=== PATIENT | male | born 1950 | race Caucasian/White ===

== ENCOUNTER 2017-01-02 07:16 | Emergency (ER) | payer BC ==
[2017-01-02 07:27] VITALS: BP 119/84
--- NOTE | 2017-01-02 07:40 | UC ---
Skin Complaint HPI - HPI Summary HPI Summary: 66 YEAR OLD MALE PRESENTS WITH COMPLAINS OF RASH ON LEFT ARM. - History of Current Complaint Chief Complaint: UCSkin Time Seen by Provider: 01/02/17 07:39 Stated Complaint: TICK BITE - Allergy/Home Medications Allergies/Adverse Reactions: Allergies Allergy/AdvReac Type Severity Reaction Status Date / Time No Known Allergies Allergy Verified 03/31/16 07:00 Review of Systems Constitutional: Negative Skin: Negative - LEFT ARM, Rash Eyes: Negative ENT: Negative Respiratory: Negative Cardiovascular: Negative Gastrointestinal: Negative Genitourinary: Negative Motor: Negative Neurovascular: Negative Musculoskeletal: Negative Neurological: Negative Psychological: Negative All Other Systems Reviewed And Are Negative: Yes PMH/Surg Hx/FS Hx/Imm Hx - Surgical History Surgical History: Yes Surgery Procedure, Year, and Place: HERNIA REPAIR AMBER - Social History Alcohol Use: Occasionally Substance Use Type: None Smoking Status (MU): Former Smoker Type: Cigarettes Length of Time of Smoking/Using Tobacco: 30 YRS Have You Smoked in the Last Year: No When Did the Patient Quit Smoking/Using Tobacco: 15 YRS Physical Exam Triage Information Reviewed: Yes Vital Signs: Initial Vital Signs Temp 36.5 C 01/02/17 07:24 Pulse 93 01/02/17 07:24 Resp 20 01/02/17 07:24 BP 119/84 01/02/17 07:24 Pulse Ox 99 01/02/17 07:24 Eye Exam: Normal ENT Exam: Normal Dental Exam: Normal Neck exam: Normal Neck: Positive: 1 Respiratory Exam: Normal Cardiovascular Exam: Normal Abdominal Exam: Normal Musculoskeletal Exam: Normal Neurological Exam: Normal Psychological Exam: Normal Skin: Positive: rashes - BULLS EYE RASH LEFT ARM Course/Dx - Diagnoses Provider Diagnoses: TICK BITE. BULLSEYE RASH Discharge - Discharge Plan Condition: Stable Disposition: HOME Prescriptions: DOXYcycline CAP(*) [DOXYcycline 100MG CAP(*)] 100 mg PO BID #56 cap Patient Education Materials: Lyme Disease (ED), Insect Bite or Sting (ED), Tick Bite (ED) Referrals: Efrain He MD [Primary Care Provider] - If Needed
== END 2017-01-02 07:52 | disposition home or self-care (01) ==
LOC: UCEAST 07:16
DX: S40.862A Insect bite (nonvenomous) of left upper arm, initial encounter (principal); W57.XXXA Bitten or stung by nonvenomous insect and other nonvenomous arthropods, initial encounter; Z87.891 Personal history of nicotine dependence
CPT/HCPCS: 86618; 99212; G0463

== ENCOUNTER 2017-02-24 05:00 | Emergency (ER) | payer BC ==
[2017-02-24] MEDS ORDERED: NS 0.9% 1000 ML* 1,000 ML IV ONE (05:44)
[2017-02-24 06:43] LABS: Hematocrit 43 % (42-52); Hemoglobin 14.5 g/dl (14.0-18.0); Mean Corpuscular HGB Conc 34 g/dl (31-36); Mean Corpuscular Hemoglobin 33 pg (27-31); Mean Corpuscular Volume 96 fL (80-94); Mean Platelet Volume 9 um3 (7.4-10.4); Red Blood Count 4.44 10^6/ul (4.0-5.4); Red Cell Distribution Width 13 % (10.5-15); White Blood Count 13.2 10^3/ul (3.5-10.8)
[2017-02-24 06:46] LABS: Add Diff/Slide Review? Slide Review Added; Comments Flag Yes
[2017-02-24 06:50] LABS: BUN/Creatinine Ratio 17.5 (8-20); Calcium 9.6 mg/dL (8.6-10.3); EGFR African American 82.2 (>60); EGFR Non-African American 63.9 (>60); Globulin 2.1 g/dL (2-4); Potassium 4.1 mmol/L (3.5-5.0); Total Bilirubin 0.8 mg/dL (0.2-1.0); Total Protein 7.1 g/dL (6.4-8.9)
[2017-02-24 06:58] LABS: Urine Bacteria Absent (Absent); Urine Bilirubin Negative (Negative); Urine Glucose Negative (Negative); Urine Nitrite Negative (Negative)
--- NOTE | 2017-02-24 08:27 | RAD ---
HISTORY: Pain, chest pain with cough COMPARISONS: April 20, 2016 VIEWS: 1: frontal portable view of the chest at 6:02 AM FINDINGS: LINES AND TUBES: None. CARDIOMEDIASTINAL SILHOUETTE: The cardiomediastinal silhouette is normal for portable technique. PLEURA: The costophrenic angles are sharp. No pleural abnormalities are noted. LUNG PARENCHYMA: The lungs are clear. ABDOMEN: The upper abdomen is clear. There is no subphrenic gas. BONES AND SOFT TISSUES: No bone or soft tissue abnormalities are noted. IMPRESSION: NO ACTIVE CARDIOPULMONARY DISEASE.
[2017-02-24] MEDS ORDERED: Dexamethasone IV* 4 MG/ML 1 ML (4 MG) IV SLOW PU ONE (09:10)
[2017-02-24] MEDS ORDERED: Dexamethasone IV* 4 MG/ML 1 ML (4 MG) ONE (09:12)
[2017-02-24 09:25] VITALS: BP 149/76
--- NOTE | 2017-02-24 16:32 | PN ---
Poornima Rosas SooYoung, scribed for Rajan Rangel MD on 02/24/17 at 0901 . Progress Note - Progress Note Date of Service: 02/24/17 Note: SO from Dr. Grissom at shift change to Dr. Morris pending reeval and dispo. 0900: ED physician at bedside A 66 y/o M presents to ED with c/o ongoing, productive cough for three days. Associated sx: sore throat, mild wheezing, hoarseness, R ear pain. Denies dysphagia. Non-smoker. Brief PE shows effusion in R ear and cerumen; L ear is nml. Pharyngeal erythema. Uvula appears swollen. No exudates. No sinus tenderness. DX: Pharyngitis. Asthmatic bronchitis. Dispo: Stable, will D/C home with prednisone, albuterol inhaler and Zpack. The documentation as recorded by the Poornima sky SooYoung accurately reflects the service I personally performed and the decisions made by me, Rajan Rangel MD.
--- NOTE | 2017-03-02 16:45 | ED ---
Quintin Rosas Benjamin, scribed for Carli Grissom MD on 02/24/17 at 0545 . Respiratory - HPI Summary HPI Summary: 66yo male c/o sore throat. Painful coughs, fatigue, and chills since Tuesday night. Pt denies fever. Pt reports baseline BP in 120/80 and HR of 88. Pt was a concerned about a possible bronchitis. - History of Current Complaint Chief Complaint: EDGeneral Stated Complaint: GENERAL ILLNESS Time Seen by Provider: 02/24/17 05:15 Hx Obtained From: Patient Onset/Duration: Sudden Onset, Lasting Days Timing: Constant Initial Severity: Moderate Current Severity: Moderate Pain Intensity: 6 Character: Cough (Productive) Sputum Color: Green Aggravating Factor(s): Nothing Alleviating Factor(s): Nothing Associated Signs and Symptoms: Chills - Allergy/Home Medications Allergies/Adverse Reactions: Allergies Allergy/AdvReac Type Severity Reaction Status Date / Time No Known Allergies Allergy Verified 03/31/16 07:00 PMH/Surg Hx/FS Hx/Imm Hx Sensory History: Reports: Hx Cataracts - LEFT NOVEMBER 2014, Hx Contacts or Glasses - RIGHT EYE CONTACT Denies: Hx Hearing Aid Opthamlomology History: Reports: Hx Cataracts - LEFT NOVEMBER 2014, Hx Contacts or Glasses - RIGHT EYE CONTACT - Surgical History Surgery Procedure, Year, and Place: HERNIA REPAIR AMBER Hx Anesthesia Reactions: No - Immunization History Date of Influenza Vaccine: 02/21/2017 Infectious Disease History: No Infectious Disease History: Denies: Hx Clostridium Difficile, Hx Hepatitis, Hx Human Immunodeficiency Virus (HIV), Hx of Known/Suspected MRSA, Hx Shingles, Hx Tuberculosis, Hx Known/ Suspected VRE, Hx Known/Suspected VRSA, History Other Infectious Disease, Traveled Outside the [place] in Last 30 Days - Family History Known Family History: Negative: Respiratory Disease - Social History Occupation: Employed Part-time Lives: Alone Alcohol Use: Occasionally Substance Use Type: Reports: None Smoking Status (MU): Former Smoker Type: Cigarettes Length of Time of Smoking/Using Tobacco: 30 YRS Have You Smoked in the Last Year: No Review of Systems Positive: Chills. Negative: Fever Eyes: Negative Positive: Sore Throat Cardiovascular: Negative Positive: Cough Gastrointestinal: Negative Genitourinary: Negative Musculoskeletal: Negative Skin: Negative Neurological: Negative Psychological: Normal All Other Systems Reviewed And Are Negative: Yes Physical Exam Triage Information Reviewed: Yes Vital Signs On Initial Exam: Initial Vitals BP 128/60 02/24/17 05:09 Vital Signs Reviewed: Yes Appearance: Positive: Well-Appearing, No Pain Distress, Well-Nourished Skin: Positive: Warm, Skin Color Reflects Adequate Perfusion, Dry Head/Face: Positive: Normal Head/Face Inspection Eyes: Positive: EOMI, JOSEFINA, Conjunctiva Clear ENT: Positive: Normal ENT inspection, Hearing grossly normal, Other - unable to see tonsils. Negative: Tonsillar swelling, Tonsillar exudate Neck: Positive: Supple, Nontender Respiratory/Lung Sounds: Positive: Clear to Auscultation Cardiovascular: Positive: RRR, Pulses are Symmetrical in both Upper and Lower Extremities Abdomen Description: Positive: Nontender, Soft Bowel Sounds: Positive: Present Musculoskeletal: Positive: Strength/ROM Intact Neurological: Positive: Sensory/Motor Intact, Alert, Oriented to Person Place, Time Psychiatric: Positive: Affect/Mood Appropriate - [place] Coma Scale Coma Scale Total: 15 Diagnostics - Vital Signs Vital Signs Temp Pulse Resp BP Pulse Ox 02/24/17 05:12 112 96 02/24/17 05:10 98.8 F 110 18 128/60 96 02/24/17 05:09 128/60 - Laboratory Lab Results: Lab Results 02/24/17 02/24/17 02/24/17 Range/Units 06:10 06:10 06:10 WBC 13.2 H (3.5-10.8) 10^3/ul RBC 4.44 (4.0-5.4) 10^6/ul Hgb 14.5 (14.0-18.0) g/dl Hct 43 (42-52) % MCV 96 H (80-94) fL MCH 33 H (27-31) pg MCHC 34 (31-36) g/dl RDW 13 (10.5-15) % Plt Count 247 (150-450) 10^3/ul MPV 9 (7.4-10.4) um3 Neut % (Auto) 81.1 (38-83) % Lymph % (Auto) 5.5 L (25-47) % Coke % (Auto) 12.5 H (1-9) % Eos % (Auto) 0.6 (0-6) % Baso % (Auto) 0.3 (0-2) % Absolute Neuts (auto) 10.7 H (1.5-7.7) 10^3/ul Absolute Lymphs (auto) 0.7 L (1.0-4.8) 10^3/ul Absolute Monos (auto) 1.7 H (0-0.8) 10^3/ul Absolute Eos (auto) 0.1 (0-0.6) 10^3/ul Absolute Basos (auto) 0 (0-0.2) 10^3/ul Absolute Nucleated RBC 0 10^3/ul Nucleated RBC % 0 Sodium 136 (133-145) mmol/L Potassium 4.1 (3.5-5.0) mmol/L Chloride 103 (101-111) mmol/L Carbon Dioxide 29 (22-32) mmol/L Anion Gap 4 (2-11) mmol/L BUN 20 (6-24) mg/dL Creatinine 1.14 (0.67-1.17) mg/dL Est GFR ( Amer) 82.2 (>60) Est GFR (Non-Af Amer) 63.9 (>60) BUN/Creatinine Ratio 17.5 (8-20) Glucose 175 H (70-100) mg/dL Lactic Acid 1.1 (0.5-2.0) mmol/L Calcium 9.6 (8.6-10.3) mg/dL Total Bilirubin 0.80 (0.2-1.0) mg/dL AST 20 (13-39) U/L ALT 21 (7-52) U/L Alkaline Phosphatase 44 (34-104) U/L Troponin I 0.00 (<0.04) ng/mL Total Protein 7.1 (6.4-8.9) g/dL Albumin 5.0 (3.2-5.2) g/dL Globulin 2.1 (2-4) g/dL Albumin/Globulin Ratio 2.4 (1-3) Urine Color Urine Appearance Urine pH (5-9) Ur Specific [place] (1.010-1.030) Urine Protein (Negative) Urine Ketones (Negative) Urine Blood (Negative) Urine Nitrate (Negative) Urine Bilirubin (Negative) Urine Urobilinogen (Negative) Ur Leukocyte Esterase (Negative) Urine WBC (Auto) (Absent) Urine RBC (Auto) (Absent) Ur Squamous Epith Cells (Absent) Urine Bacteria (Absent) Hyaline Casts (Absent) Urine Glucose (Negative) Group A Strep Rapid (Negative) 02/24/17 02/24/17 Range/Units 06:38 06:40 WBC (3.5-10.8) 10^3/ul RBC (4.0-5.4) 10^6/ul Hgb (14.0-18.0) g/dl Hct (42-52) % MCV (80-94) fL MCH (27-31) pg MCHC (31-36) g/dl RDW (10.5-15) % Plt Count (150-450) 10^3/ul MPV (7.4-10.4) um3 Neut % (Auto) (38-83) % Lymph % (Auto) (25-47) % Coke % (Auto) (1-9) % Eos % (Auto) (0-6) % Baso % (Auto) (0-2) % Absolute Neuts (auto) (1.5-7.7) 10^3/ul Absolute Lymphs (auto) (1.0-4.8) 10^3/ul Absolute Monos (auto) (0-0.8) 10^3/ul Absolute Eos (auto) (0-0.6) 10^3/ul Absolute Basos (auto) (0-0.2) 10^3/ul Absolute Nucleated RBC 10^3/ul Nucleated RBC % Sodium (133-145) mmol/L Potassium (3.5-5.0) mmol/L Chloride (101-111) mmol/L Carbon Dioxide (22-32) mmol/L Anion Gap (2-11) mmol/L BUN (6-24) mg/dL Creatinine (0.67-1.17) mg/dL Est GFR ( Amer) (>60) Est GFR (Non-Af Amer) (>60) BUN/Creatinine Ratio (8-20) Glucose (70-100) mg/dL Lactic Acid (0.5-2.0) mmol/L Calcium (8.6-10.3) mg/dL Total Bilirubin (0.2-1.0) mg/dL AST (13-39) U/L ALT (7-52) U/L Alkaline Phosphatase (34-104) U/L Troponin I (<0.04) ng/mL Total Protein (6.4-8.9) g/dL Albumin (3.2-5.2) g/dL Globulin (2-4) g/dL Albumin/Globulin Ratio (1-3) Urine Color Melany Urine Appearance Clear Urine pH 5.0 (5-9) Ur Specific [place] 1.025 (1.010-1.030) Urine Protein 1+(30 mg/dl) H (Negative) Urine Ketones Trace H (Negative) Urine Blood Negative (Negative) Urine Nitrate Negative (Negative) Urine Bilirubin Negative (Negative) Urine Urobilinogen Negative (Negative) Ur Leukocyte Esterase Trace H (Negative) Urine WBC (Auto) Trace(0-5/hpf) (Absent) Urine RBC (Auto) Trace(0-2/hpf) (Absent) Ur Squamous Epith Cells Present H (Absent) Urine Bacteria Absent (Absent) Hyaline Casts Present H (Absent) Urine Glucose Negative (Negative) Group A Strep Rapid Negative (Negative) Result Diagrams: 02/24/17 06:10 02/24/17 06:10 Lab Statement: Any lab studies that have been ordered have been reviewed, and results considered in the medical decision making process. - Radiology CXR Xray Interpretation: No Acute Changes Radiology Interpretation Completed By: ED Physician Disposition - Course Course Of Treatment: Reviewed pts medication and allergy lists. Blood pressure noted. pt awaiting labs and cxr and will be signed out to Dr. Rangel - Diagnoses Provider Diagnoses: URI (upper respiratory infection) Discharge - Discharge Plan Condition: Stable Disposition: HOME Prescriptions: Albuterol HFA INHALER* [Ventolin HFA Inhaler*] 2 puff INH Q6H PRN #1 mdi PRN Reason: Wheezing Azithromycin TAB* [Zithromax TAB (Z-ELISE) 250 mg #6 tabs] 2 tab PO .TODAY, THEN 1 DAILY #1 elise predniSONE TAB* [Deltasone TAB*] 60 mg PO DAILY 15 Days predniSONE TAB* [Deltasone TAB*] 60 mg PO DAILY #15 tab Patient Education Materials: Albuterol (By breathing), Prednisone (By mouth), Azithromycin (By mouth), Pharyngitis (ED), Bronchospasm (ED) Forms: *Work Release Referrals: Alvin Pena MD [Medical Doctor] - Efrain He MD [Primary Care Provider] - Cierra Kelsey MD [Medical Doctor] - Additional Instructions: Follow up with your primary care provider in 3 days. Please return to ED if you experience new or worsening symptoms. The documentation as recorded by the Quintin sky Benjamin accurately reflects the service I personally performed and the decisions made by me, Carli Grissom MD.
== END 2017-02-24 09:27 | disposition home or self-care (01) ==
LOC: ED 05:00
DX: R05 Cough (principal); R53.83 Other fatigue; Z87.891 Personal history of nicotine dependence; J06.9 Acute upper respiratory infection, unspecified
CPT/HCPCS: 36415; 71010; 80053; 81003; 81015; 83605; 84484; 85025; 87040; 87086; 87651; 96374; 99283; J1100

== ENCOUNTER 2019-02-07 12:42 | Inpatient (IN) | payer MEDICARE ==
[2019-02-07] MEDS ORDERED: Levofloxacin 750 MG IVPREMIX(* 750 MG/150 ML BAG IVPB ONE (13:24)
[2019-02-07] MEDS ORDERED: NS 0.9% 1000 ML** 1,000 ML IV ONE (13:24)
[2019-02-07] MEDS ORDERED: metroNIDAZOLE IV 500 MG/100ML* 500 MG/100 ML BAG IVPB ONE (13:24)
[2019-02-07 14:07] LABS: Hematocrit 42 % (42-52); Hemoglobin 14.2 g/dL (14.0-18.0); Mean Corpuscular HGB Conc 34 g/dL (31-36); Mean Corpuscular Hemoglobin 32 pg (27-31); Mean Corpuscular Volume 95 fL (80-94); Mean Platelet Volume 8.6 fL (7.4-10.4); Platelet Count 262 10^3/uL (150-450); Red Cell Distribution Width 14 % (10-15); White Blood Count 11.9 10^3/uL (3.5-10.8)
[2019-02-07 14:12] LABS: ABS Basophils 0.1 10^3/ul (0-0.2); ABS Eosinophils 0.1 10^3/ul (0-0.6); ABS Lymphocytes 0.9 10^3/ul (1.0-4.8); ABS Monocytes 1.8 10^3/ul (0-0.8); ABS Neutrophils 9.1 10^3/ul (1.5-7.7); Eosinophil % 0.5 %; Lymphocyte % 7.3 %
--- NOTE | 2019-02-07 14:14 | ED ---
Abdominal Pain/Male - HPI Summary HPI Summary: This patient is a 68 year old M presenting to [facility] with a chief complaint of continued intermittent spasming central abdominal pain. Pt has had diverticulitis (first incidence ever) since 01/31/19 and has been on Levaquin and flagyl po as an outpatient with continued pain. He was seen in the office by Dr. Kelsey yesterday and a CT abd and pelvis were ordered, which showed progression of the diverticulitis, but no abscess or perforation. Pt's WBC was 14 and CRP also remained elevated. Pt was not available by phone last pm when those results returned so Dr. Kelsey reached pt today and advised him to come to the ED today for continued treatment and failed outpatient therapy for diverticulitis. Blood work on intial evaluation of his diverticulitis also had one blood culture that grew Pseudomonas. Pt reports feeling tired, and having a tender abdomen. He finished his dose of antibiotics this morning. Pt had a fish sandwich and ice cream this morning and had cramping, but no vomiting or diarrhea. The patient rates the current abdominal pain 0/10 in severity while in the ED. Patient reports decreased frequency of urination, small amount of stool that is a lot darker than nml, but no hematochezia or BRBPR and no hematemesis. Patient denies fever, and vomiting. Vital signs while in room: HR 91 bpm, BP 112/58, O2 sat 97%; Pt was afebrile at triage. - History of Current Complaint Chief Complaint: Omi Stated Complaint: STOMACH ISSUES PER PT Time Seen by Provider: 02/07/19 13:23 Hx Obtained From: Patient, Other: - Dr. Kelsey by phone to Dr. Hernandez Onset/Duration: Gradual Onset, Resolved Timing: Intermittent Severity Initially: Mild Severity Currently: None Pain Intensity: 0 Pain Scale Used: 0-10 Numeric Location: Diffuse Radiates: No Character: Other: - Spasming Aggravating Factor(s): Nothing Alleviating Factor(s): Nothing Associated Signs And Symptoms: Positive: Urinary Symptoms, Other - pos - small amount of stool that is darker than nml, no hematemesis, no hematochezia, no BRBPR.. Negative: Fever, Vomiting - Allergies/Home Medications Allergies/Adverse Reactions: Allergies Allergy/AdvReac Type Severity Reaction Status Date / Time No Known Allergies Allergy Verified 02/07/19 12:56 PMH/Surg Hx/FS Hx/Imm Hx Previously Healthy: Yes Endocrine/Hematology History: Denies: Hx Diabetes Cardiovascular History: Denies: Hx Hypertension Respiratory History: Denies: Hx Asthma Sensory History: Reports: Hx Cataracts - LEFT NOVEMBER 2014, Hx Contacts or Glasses - RIGHT EYE CONTACT Denies: Hx Hearing Aid Opthamlomology History: Reports: Hx Cataracts - LEFT NOVEMBER 2014, Hx Contacts or Glasses - RIGHT EYE CONTACT - Surgical History Surgery Procedure, Year, and Place: HERNIA REPAIR AMBER, cholecystectomy, Pericardectomy, cataract surgery Hx Anesthesia Reactions: No Infectious Disease History: No Infectious Disease History: Denies: Hx Clostridium Difficile, Hx Hepatitis, Hx Human Immunodeficiency Virus (HIV), Hx of Known/Suspected MRSA, Hx Shingles, Hx Tuberculosis, Hx Known/ Suspected VRE, Hx Known/Suspected VRSA, History Other Infectious Disease, Traveled Outside the in Last 30 Days - Family History Known Family History: Negative: Respiratory Disease, Other - diverticulitis - Social History Alcohol Use: Occasionally Hx Substance Use: No Substance Use Type: Reports: None Hx Tobacco Use: No Smoking Status (MU): Former Smoker Type: Cigarettes Length of Time of Smoking/Using Tobacco: 30 YRS Have You Smoked in the Last Year: No Review of Systems Negative: Fever Cardiovascular: Negative Respiratory: Negative Positive: Abdominal Pain, Other - pos - small amount of stool and is darker than nml; neg-hematochezia, BRBPR, hematemesis. Negative: Vomiting Positive: frequency Musculoskeletal: Negative Skin: Negative Neurological: Negative Psychological: Normal All Other Systems Reviewed And Are Negative: Yes Physical Exam - Summary Physical Exam Summary: Appearance: Ill-appearing, no acute pain distress, well-nourished Skin: Warm, color reflects adequate perfusion, dry Head: Normal Head/Face inspection, atraumatic Eyes: Conjunctiva clear ENT: Normal inspection Neck: Supple, no nodes, no JVD Respiratory: Lungs clear, normal breath sounds, no respiratory distress Cardio: RRR, No murmur, pulses normal, brisk capillary refill Abdomen: Soft, minimal tenderness on palpation of suprapubic area and LLQ, no rebound, no guarding, no masses, non-distended Bowel sounds: Present in all 4 quadrants Musculoskeletal: Strength Intact/ROM intact, no calf tenderness, no edema. Psychological: Normal Neuro: Alert, muscle tone normal, no focal deficit Triage Information Reviewed: Yes Vital Signs On Initial Exam: Initial Vitals Temp Pulse Resp BP Pulse Ox 98.5 F 98 16 106/77 96 02/07/19 12:54 02/07/19 12:54 02/07/19 12:54 02/07/19 12:54 02/07/19 12:54 Vital Signs Reviewed: Yes Diagnostics - Vital Signs Vital Signs Temp Pulse Resp BP Pulse Ox 02/07/19 12:54 98.5 F 98 16 106/77 96 - Laboratory Lab Results: Lab Results 02/07/19 Range/Units 13:53 WBC 11.9 H (3.5-10.8) 10^3/uL RBC 4.40 (4.18-5.48) 10^6 /uL Hgb 14.2 (14.0-18.0) g/dL Hct 42 (42-52) % MCV 95 H (80-94) fL MCH 32 H (27-31) pg MCHC 34 (31-36) g/dL RDW 14 (10-15) % Plt Count 262 (150-450) 10^3/uL MPV 8.6 (7.4-10.4) fL Neut % (Auto) Pending Lymph % (Auto) Pending [place] % (Auto) Pending Eos % (Auto) Pending Baso % (Auto) Pending Absolute Neuts (auto) Pending Absolute Lymphs (auto) Pending Absolute Monos (auto) Pending Absolute Eos (auto) Pending Absolute Basos (auto) Pending Absolute Nucleated RBC Pending Nucleated RBC % Pending Result Diagrams: 02/08/19 05:38 02/08/19 05:38 Lab Statement: Any lab studies that have been ordered have been reviewed, and results considered in the medical decision making process. - EKG 1334 Cardiac Rate: NL - 90 bpm EKG Rhythm: Sinus Rhythm ST Segment: Non-Specific Ectopy: PACs EKG Comparison: No Significant Change - c/w 01/31/19 Summary of EKG Findings: An EKG at 1334 reveals sinus rhythm 90, nml AV/IV CT, nml,QTc, low voltage extremity leads Re-Evaluation - Re-Evaluation First Eval Re-Evaluation Time: 14:55 Change: Unchanged Comment: Pain is controlled. Pt agrees to admission. Abdominal Pain Male Course/Dx - Course Course Of Treatment: 68 yo M with evidence of progressive diverticulitis since on CT despite treatment with Levaquin and flagyl as an outpatient. Pt also had one blood culture on 01/31/19 grow pseudomonas, so pt is sent by Dr. Kelsey for re-eval and treatment of diverticulitis that failed outpatient therapy. Pt's physical exam shows no acute findings except minimal tenderness on palpation of suprapubic area and LLQ. Pt is afebrile. Pt's pain is controlled without medication in the ED. Blood work obtained shows wbc 11.9, CRP 62.01, Creatinine is 1.23, Glucose is 131, ALT is 66, INR 1.25. UA obtained shows 1+ leukocyte esterase, no bacteria, no nitrates. An EKG at 1334 reveals sinus rhythm 90, nml STACEY CT, nml,QTc, low voltage extremity leads, no acute changes, no change c/w 01/31/19. Pt medications reviewed this visit. Nurses notes reviewed. No Allergies noted. In the ED course the patient was given Levaquin 750mg IV, flagyl 500mg, and NS IV fluids. 14:[address] Sharpe, who accepts pt for admission. Patient will be admitted. The patient is agreeable with this plan. - Diagnoses Provider Diagnoses: Diverticulitis, Hx of bacteremia - Provider Notifications Discussed Care Of Patient With: Noemy Sharpe Time Discussed With Above Provider: 14:59 Instructed by Provider To: Other - Discussed case with Dr. Sharpe, who accepts pt for admission Discharge ED - Sign-Out/Discharge Documenting (check all that apply): Patient Departure - Admit Patient Received Moderate/Deep Sedation with Procedure: No - Discharge Plan Condition: Stable Disposition: ADMITTED TO [facility] - Billing Disposition and Condition Condition: STABLE Disposition: Admitted to [facility] - Attestation Statements Document Initiated by Scribe: Yes Documenting Scribe: Melva Baker Provider For Whom Scribe is Documenting (Include Credential): Dr. Hanna Hernandez MD Scribe Attestation: Melva Rosas, scribed for Dr. Hanna Hernandez MD on 03/12/19 at 2230. Scribe Documentation Reviewed: Yes Provider Attestation: The documentation as recorded by the Melva sky accurately reflects the service I personally performed and the decisions made by me, Dr. Hanna Hernandez MD Status of Taisha Document: Viewed
[2019-02-07 14:22] LABS: Activated Partial Thrombo Time 35.2 seconds (26.0-38.0); INR 1.25 (0.82-1.09)
[2019-02-07 14:43] LABS: Albumin 4.2 g/dL (3.2-5.2); Albumin/Globulin Ratio 1.7 (1-3); BUN/Creatinine Ratio 15.4 (8-20); C Reactive Protein 62.01 mg/L (<8.01); Calcium 8.9 mg/dL (8.6-10.3); EGFR African American 70.4 (>60); EGFR Non-African American 58.2 (>60); Globulin 2.5 g/dL (2-4); Magnesium 1.9 mg/dL (1.9-2.7); Potassium 4.1 mmol/L (3.5-5.0); Total Bilirubin 0.5 mg/dL (0.2-1.0); Total Protein 6.7 g/dL (6.4-8.9)
[2019-02-07 15:51] LABS: Urine Appearance Clear; Urine Bacteria Absent (Absent); Urine Bilirubin Negative (Negative); Urine Blood Negative (Negative); Urine Color Yellow; Urine Glucose Negative (Negative); Urine Ketones Negative (Negative); Urine Nitrite Negative (Negative); Urine Protein Negative (Negative); Urine Red Blood Cell Absent (Absent); Urine Squamous Epithelial Cell Present (Absent); Urine Urobilinogen Negative (Negative); Urine White Blood Cell Trace(0-5/hpf) (Absent)
[2019-02-07] MEDS ORDERED: Piperacillin/Tazobac ADVAN(*) 3.375 GM in NS 0.9% 100 ML* 100 ML IVPB ONE ×4 (16:15)
[2019-02-07] MEDS ORDERED: PROCHLORPERAZINE INJ 5 MG/ML 2 ML VIAL IV PRN (16:18)
[2019-02-07] MEDS ORDERED: Zosyn per Pharmacy* NOTE FOLLOW UP SCH (17:00)
--- NOTE | 2019-02-07 20:10 | HP ---
CC: Dr. Kelsey * HISTORY AND PHYSICAL: DATE OF ADMISSION: 02/07/19 TIME OF EVALUATION: 3:51 p.m. PRIMARY CARE PROVIDER: Dr. Kelsey. CHIEF COMPLAINT: Abdominal pain. HISTORY OF PRESENT ILLNESS: On 01/31/19, the patient developed fever, malaise, and presented to the emergency room for further evaluation. He had blood test done including blood cultures, and he had a CT of the abdomen showing mild diverticulitis. He was discharged from the emergency room with levofloxacin, metronidazole to follow up with his primary care provider. The next day he was called back to the emergency room because 1 set of blood cultures was growing gram- negative bacilli. He was still having intermittent fevers, and labs were repeated. At that point, his white cell count had come down from 16 to 7.5, and the decision was to discharge him home on the same antibiotics to continue his treatment. Repeat blood cultures were sent. The initial blood cultures grew Pseudomonas aeruginosa that was sensitive to levofloxacin and the repeat blood cultures sent on the 02/01/19 were negative. The patient states that his systemic symptoms of fever, malaise improved, but the abdominal pain is still present, reason why he went to see Dr. Kelsey. She ordered a followup CT of the abdomen and pelvis that showed findings most consistent with sigmoid diverticulitis demonstrating slight progression from the prior exam, but no evidence for perforation or abscess. There was a small periumbilical hernia containing a nondistended loop of small bowel. As the patient was still symptomatic and his CT had shown some progression of disease, the hospitalist service was consulted for admission. The patient states that his last colonoscopy was 12 years ago in [place] and reportedly there were no abnormalities or polyps. The patient states that his last formed bowel movement was a week ago prior to the beginning of the pain and he has been having small bowel movements throughout including today. He has not seen any bright red blood, no black stool. PAST MEDICAL HISTORY: None. PAST SURGICAL HISTORY: The patient had hernia repair, history of cataract surgery. MEDICATIONS: 1. Levofloxacin 500 mg p.o. daily. 2. Metronidazole 500 mg p.o. q.8 hours. ALLERGIES: No known drug allergies. FAMILY HISTORY: He suspects that his father had colon cancer. SOCIAL HISTORY: He denies tobacco, alcohol, or drug use. 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 Surrogate decision maker is his sister Kaela Morales, phone number is [phone]. REVIEW OF SYSTEMS: A 14-point review of systems was performed and all the pertinent negatives are noted in the HPI. PHYSICAL EXAMINATION GENERAL: The patient is a pleasant elderly gentleman lying in the ED stretcher , in no acute distress. VITAL SIGNS: Temperature 98.5, heart rate is 92, respiratory rate is 12, oxygen saturation is 98% on room air, blood pressure is 114/74. HEENT: Pupils are equal. Status post cataract surgery with visible lenses. Moist mucous membranes. CHEST: Breath sounds present bilaterally, no added sounds. CVS: Normal S1, S2. Regular rate and rhythm. ABDOMEN: Obese, soft, mild left lower quadrant tenderness. No guarding. No rebound. Bowel sounds are present and increased. EXTREMITIES: No edema. NEUROLOGIC: He is alert and oriented x3. Able to move all 4 extremities. LABORATORY AND IMAGING DATA: The patient had a CBC that showed WBC of 11.9, hemoglobin of 14.2, hematocrit of 42, platelets of 262 with 76% neutrophils. MCV was 95, MCH was 32. INR was 1.2. Chemistry showed a sodium of 138, potassium 4.1, chloride of 104, bicarb 27, BUN of 19, creatinine of 1.2, glucose 131, lactic acid 0.7, calcium is 8.9, magnesium is 1.9. LFTs were normal except for ALT of 66. CRP was 62. Urinalysis showed trace LE and squamous epithelial cells present. CT of the abdomen and pelvis done 02/06/19 showed findings most consistent with sigmoid diverticulitis, demonstrated slight progression from the prior exam, no evidence for perforation or abscess. Small periumbilical hernia containing a nondistended loop of small bowel, unchanged. Hepatic steatosis. ASSESSMENT AND PLAN: Mr. Vasquez is a 68-year-old male with no significant past medical history that presents to the ED a week ago with complaints of fever, chills, abdominal discomfort, diagnosed with acute diverticulitis. Blood culture at that time grew pseudomonas sensitive to levofloxacin. The patient returns to the emergency room with persistent abdominal pain. Despite treatment , found to have slight progression of his diverticulitis. 1. Acute diverticulitis. The patient does not meet sepsis criteria at this time. I believe he has partially treated diverticulitis as he had resolution of his systemic symptoms and his blood cultures have cleared. He will be admitted to medical floor. We are going to put him on Zosyn IV, and he is going to have a low- fiber diet. His last colonoscopy was 12 years ago, and he has a suspected family history of colon cancer. He will need a followup colonoscopy as outpatient. 2. DVT prophylaxis: The patient has a score of 3 on DVT Prophylaxis Risk Assessment Guide. He will be started on subcutaneous heparin. 3. Code status is full. TIME SPENT: Approximately 50 minutes was spent with patient interview, medical records review, physical examination on admission, more than half this time was spent [id number] with the patient in coordination of care. [id number]/[facility] #: [id number] EUNICE
[2019-02-07] MEDS ORDERED: Zolpidem TAB* 5 MG PO ONE (21:00)
[2019-02-07] MEDS: Heparin VIAL(*) 5000 UNITS/ML VIAL (FIVE THOUSAND) SUBCUT SCH (21:12)
[2019-02-07] MEDS: ZOSYN 3.375 GM Q8H per EXTENDED INFUSION IVPB SCH ×2 (21:20)
[2019-02-07] MEDS: Acetaminophen TAB* 325 MG PO PRN (21:36)
[2019-02-08] MEDS: ZOSYN 3.375 GM Q8H per EXTENDED INFUSION IVPB SCH ×6 (05:47→20:50)
[2019-02-08 05:49] LABS: ABS Eosinophils 0.1 10^3/ul (0-0.6); ABS Lymphocytes 0.9 10^3/ul (1.0-4.8); ABS Monocytes 1.4 10^3/ul (0-0.8); ABS Neutrophils 6.6 10^3/ul (1.5-7.7); Hematocrit 38 % (42-52); Hemoglobin 13.2 g/dL (14.0-18.0); Lymphocyte % 10.5 %; Mean Corpuscular HGB Conc 34 g/dL (31-36); Mean Corpuscular Hemoglobin 33 pg (27-31); Mean Corpuscular Volume 96 fL (80-94); Mean Platelet Volume 8.2 fL (7.4-10.4); Nucleated Red Blood Cells % 0.1; Platelet Count 273 10^3/uL (150-450); Red Blood Count 4.01 10^6 /uL (4.18-5.48); Red Cell Distribution Width 14 % (10-15)
[2019-02-08] MEDS: Heparin VIAL(*) 5000 UNITS/ML VIAL (FIVE THOUSAND) SUBCUT SCH ×3 (05:50→20:51)
[2019-02-08] MEDS: Acetaminophen TAB* 325 MG PO PRN (05:51)
[2019-02-08 06:11] LABS: BUN/Creatinine Ratio 11.5 (8-20); C Reactive Protein 50.44 mg/L (<8.01); Calcium 8.6 mg/dL (8.6-10.3); EGFR African American 71.1 (>60); EGFR Non-African American 58.7 (>60); Potassium 4.2 mmol/L (3.5-5.0)
--- NOTE | 2019-02-08 10:29 | PN ---
Subjective Date of Service: 02/08/19 Interval History: HOSPITALIST PROGRESS NOTE Patient seen and examined at bedside. Care reviewed and d/w Pablito Salas RN. He feels a little better today. LLQ pain is still present, but less intense. Two soft BMs this AM, tolerating diet, no N/V. Family History: Unchanged from Admission Social History: Unchanged from Admission Past Medical History: Unchanged from Admission Objective Active Medications: Acetaminophen (Tylenol Tab*) 650 mg PO Q6H PRN PRN Reason: MILD PAIN or TEMP > 100.4 Last Admin: 02/08/19 05:51 Dose: 650 mg Heparin Sodium (Porcine) (Heparin Vial(*)) 5,000 units SUBCUT Q8HR JOVITA Last Admin: 02/08/19 05:50 Dose: 5,000 units Piperacillin Sod/Tazobactam (Sod 3.375 gm/ Sodium Chloride) 100 mls @ 25 mls/ hr IVPB Q8H COUNTS INCLUDE 234 BEDS AT THE [facility] Last Admin: 02/08/19 05:47 Dose: 25 mls/hr Pharmacy Consult (Zosyn Per Pharmacy*) 1 note FOLLOW UP .ZOSYN PER PHARMACY JOVITA Prochlorperazine Edisylate (Compazine Inj*) 5 mg IV Q6H PRN PRN Reason: NAUSEA/VOMITING Vital Signs - 8 hr 02/08/19 02/08/19 02/08/19 03:25 07:15 08:00 Temperature 97.8 F 98.1 F Pulse Rate 85 86 Respiratory 16 18 18 Rate Blood Pressure 102/55 97/58 (mmHg) O2 Sat by Pulse 96 97 Oximetry Oxygen Devices in Use Now: None Appearance: Pleasant gentleman lying in bed in NAD. Eyes: No Scleral Icterus Ears/Nose/Mouth/Throat: Mucous Membranes Moist Neck: Trachea Midline Respiratory: Symmetrical Chest Expansion and Respiratory Effort, Clear to Auscultation Cardiovascular: RRR - Normal S1 and S2 Abdominal: - - Obese, soft, mild diffuse tenderness, moderate LLQ tenderness, no guarding, no rebound, BS+ and increased Extremities: No Edema Neurological: Alert and Oriented x 3, NL Muscle Strength and Tone Result Diagrams: 02/08/19 05:38 02/08/19 05:38 Microbiology and Other Data: Microbiology 02/07/19 19:09 Stool Gross Appearance - Final Stool C. difficile DNA Amplification - Final 027 Presumptive NEGATIVE Toxigenic C.diff NEGATIVE Stool Lactoferrin - Final 02/07/19 19:09 Stool Occult Blood (ALAINA) - Final Stool Assess/Plan/Problems-Billing Assessment: Mr Vasquez is a 68yo M with [facility] that presented to ED with c/o abdominal pain after failing outpatient therapy for diverticulitis. - Patient Problems (1) Diverticulitis Comment: - Failed outpatient therapy with Levofloxacin/Metronidazole as outpatient. - Continue Zosyn to complete 48h and transition to PO Augmentin to complete 14 days. - Will need colonoscopy as outpatient due to family history of colon CA. (2) Pseudomonal bacteremia Comment: - Resolved. - Outpatient blood culture grew Pseudomonas in one set. - Follow up blood cultures are negative. (3) DVT prophylaxis Comment: - SQ heparin. (4) Full code status Status and Disposition: Inpatient. Anticipate d/c in AM if he continues to improve.
[2019-02-08] MEDS ORDERED: Zolpidem TAB* 5 MG PO ONE (19:41)
--- NOTE | 2019-02-08 22:16 | DS ---
CC: Dr. Kelsey * DISCHARGE SUMMARY: DATE OF ADMISSION: 02/07/19 TENTATIVE DATE OF DISCHARGE: 02/09/19 PRIMARY CARE PHYSICIAN: Dr. Kelsey. DISCHARGE DIAGNOSIS: Acute diverticulitis. MEDICATION LIST: 1. Acetaminophen 650 mg p.o. q.6 hours p.r.n. marked pain or fever. 2. Naproxen 220 mg p.o. q.8 hours p.r.n. pain. 3. Augmentin 875 mg p.o. b.i.d. for 14 days. HOSPITAL COURSE: Mr. Vasquez is a 68-year-old healthy male who presented to the emergency room with complaints of abdominal pain. On 01/31/19, the patient developed fever, malaise, abdominal pain and was diagnosed with diverticulitis. Blood cultures done at that time were growing gram negative bacilli, so he was called back to the emergency room, but as he was feeling better and his blood test seem to be improved, he was discharged home to continue his treatment with Levaquin and Flagyl. The patient states that he continued to have abdominal pain. So, his primary care provider ordered a followup CAT scan that showed progression of his diverticulitis, reason why he was sent to the emergency room for evaluation. For more details about his presentation, I refer to history and physical. The patient was switched from Levaquin, Flagyl to Zosyn and he is having good response with improvement of his abdominal pain. He is able to tolerate a normal diet. He has had soft bowel movements. Stool for occult blood was negative and repeat blood cultures showed no growth. The patient is medically stable to be discharged home, but he will need GI follow up as outpatient as he states his father had colon cancer and his last colonoscopy was 12 years ago. So, he will benefit of a colonoscopy as outpatient. PHYSICAL EXAMINATION: Vital Signs: Temperature 98.3, heart rate is 84, respiratory rate is 21, oxygen saturation 99% on room air, blood pressure is 106 /63. General: The patient is a pleasant elderly gentleman, lying in bed in no acute distress. CVS: Normal S1, S2. Regular rate and rhythm. Chest: Breath sounds are present bilaterally with no added sounds. Abdomen is obese, soft with mild left lower quadrant tenderness. No guarding. No rebound. Bowel sounds are present and increased. Extremities: No edema. Neuro: He is alert and oriented x3. Able to move all 4 extremities. DIET: Low fiber diet for 2 weeks, then regular diet. ACTIVITIES: As tolerated. DISPOSITION: To home. STATUS WHILE IN THE HOSPITAL: Inpatient. CONDITION AT THE TIME OF DISCHARGE: Fair. Please keep in mind that this is a summarized version of this patient's hospital stay. If you need more information, please feel free to call me at [phone] or please obtain full medical records. TIME SPENT: Approximately 45 minutes was spent to complete this discharge. [id number]/[facility] #: [id number] MTDD
[2019-02-09] MEDS: Acetaminophen TAB* 325 MG PO PRN (02:55)
[2019-02-09] MEDS: ZOSYN 3.375 GM Q8H per EXTENDED INFUSION IVPB SCH ×2 (05:32)
[2019-02-09] MEDS: Heparin VIAL(*) 5000 UNITS/ML VIAL (FIVE THOUSAND) SUBCUT SCH (05:33)
--- NOTE | 2019-02-09 08:50 | PN ---
Progress Note - Progress Note Date of Service: 02/09/19 Note: Time spent on discharge including exam of patient, discussion with patient, nurse, CM, review of EMR and preparation of discharge documents is 40 minutes.
[2019-02-09] MEDS ORDERED: Amoxicillin/Clavulanate TAB* 875 MG PO SCH (09:00)
[2019-02-09 09:29] VITALS: BP 118/67
--- NOTE | 2019-02-09 11:01 | DS ---
CC: Dr. Kelsey DISCHARGE SUMMARY: DATE OF ADMISSION: 02/07/19 DATE OF DISCHARGE: 02/09/19 HISTORY OF PRESENT ILLNESS/HOSPITAL COURSE: This 68-year-old man had presented with diverticulitis. He initially developed a temperature of 102 that he took himself at home on 01/31/19 and had left lo wer quadrant pain. CT of the abdomen showed diverticulitis, which was uncomplicated. He was dischar gepramod from the emergency room with a prescription for levofloxacin and metronidazole, which he did take . Several days later, he spent the night with increased left lower quadrant pain. The pain up until then was really minimal or almost nonexistent. The following morning after this night of pain he sa w his doctor, who ordered more tests including another CT scan and the next day, he was told the CT s can had showed some increased changes by then. At the time he saw his primary care doctor the first time, the left lower quadrant pain was much less. When he was admitted on the day of admission, his left lower quadrant pain also had subsided. He was treated with piperacillin/tazobactam. I note he had positive blood cultures for pseudomonas. The pseudomonas was sensitive to both levofloxacin and piperacillin/tazobactam. He did well in the hospital. His white count on 01/31/19 was 16.3; on 02/01/19 it was 7.5; on it was 14.2; on 02/07/19 it was 11.9; and on 02/08/19 it was 9.0. His CRP also fluctuated; it was 10 on 01/31/19; 22 on 02/06/19; 62 on 02/07/19, and 50 on 02/08/19. On the day of discharge, he had no tenderness or abdominal pain. His bowel function was normal. The appetite was good. He was essentially asymptomatic and felt well. My clinical impression is that the patient had a polymicrobial infection, which would be typical of d iverticulitis. He had pseudomonas bacteremia. The levofloxacin did resolve his white count and bact eremia, which resolved from followup blood cultures; however, he had increase in CRP and some increas e in abdominal pain and white blood cell count, possibly indicating another bacterial component that was not sensitive to levofloxacin. He did respond well to piperacillin/tazobactam. He will continue with 14 days prescribed of amoxicillin/clavulanate 875 mg b.i.d. FINAL DIAGNOSES: 1. Diverticulitis. 2. Ten years post screening colonoscopy. DISCHARGE MEDICATIONS: 1. Acetaminophen 650 mg every 6 hours p.r.n. 2. Amoxicillin/clavulanate 875 mg b.i.d. for 14 days. 3. Naproxen 220 mg every 8 hours p.r.n. CONDITION ON DISCHARGE: Improved. DISPOSITION ON DISCHARGE: Discharged home. [id number]/[facility] #: [id number]
== END 2019-02-09 10:50 | disposition home or self-care (01) | DRG 392 ==
LOC: ED 12:42 → MED 16:30
PROVIDERS: ADMIT Internal Medicine; ATTEND Internal Medicine
DX: K57.32 Diverticulitis of large intestine without perforation or abscess without bleeding (principal); R78.81 Bacteremia; B96.5 Pseudomonas (aeruginosa) (mallei) (pseudomallei) as the cause of diseases classified elsewhere; K42.9 Umbilical hernia without obstruction or gangrene; Z98.42 Cataract extraction status, left eye; Z98.41 Cataract extraction status, right eye; Z80.0 Family history of malignant neoplasm of digestive organs; Z90.49 Acquired absence of other specified parts of digestive tract; Z72.89 Other problems related to lifestyle; Z87.891 Personal history of nicotine dependence
CPT/HCPCS: 36415; 74176; 80048; 80053; 81003; 81015; 82140; 82150; 82272; 82550; 83605; 83630; 83690; 83735; 83880; 84484; 85025; 85610; 85730; 86140; 87040; 87045; 87046; 87086; 87493; 87899; 93005; 99284; A9270-GY; J0780; J1644; J2543

== ENCOUNTER 2019-06-10 10:21 | Emergency (ER) | payer MEDICARE ==
--- NOTE | 2019-06-10 10:43 | UC ---
Respiratory Complaint HPI - HPI Summary HPI Summary: Cough and congestion x 2 wks, just finished doxy rx. He feels he has nasal congestion w/ this. nothing makes it better/worse. he did get flu shot. - History of Current Complaint Chief Complaint: UCRespiratory Stated Complaint: COUGH, AND CONGESTION Time Seen by Provider: 06/10/19 10:41 Hx Obtained From: Patient Aggravating Factors: Nothing Alleviating Factors: Nothing - Allergies/Home Medications Allergies/Adverse Reactions: Allergies Allergy/AdvReac Type Severity Reaction Status Date / Time No Known Allergies Allergy Verified 06/10/19 10:45 PMH/Surg Hx/FS Hx/Imm Hx - Additional Past Medical History Additional PMH: no chronic illness Previously Healthy: Yes - Surgical History Surgical History: Yes Surgery Procedure, Year, and Place: HERNIA [facility]PA[facility], cholecystectomy, Pericardiectomy - Family History Known Family History: Negative: Respiratory Disease, Other - diverticulitis - Social History Alcohol Use: Occasionally Substance Use Type: None Smoking Status (MU): Former Smoker Type: Cigarettes Length of Time of Smoking/Using Tobacco: 30 YRS Have You Smoked in the Last Year: No When Did the Patient Quit Smoking/Using Tobacco: 15 YRS - Immunization History Most Recent Influenza Vaccination: 2018 Most Recent Pneumonia Vaccination: in the past Review of Systems All Other Systems Reviewed And Are Negative: Yes Constitutional: Negative: Fever Skin: Negative: Rash ENT: Negative: Sore Throat, Ear Ache, Nasal Discharge, Sinus Congestion, Other - denies Respiratory: Positive: Cough. Negative: Shortness Of Breath Physical Exam Triage Information Reviewed: Yes Appearance: Well-Appearing Vital Signs Reviewed: Yes Eyes: Positive: Conjunctiva Clear ENT: Positive: Pharyngeal erythema Neck: Positive: Supple, Nontender Respiratory: Positive: Lungs clear, No respiratory distress, No accessory muscle use Cardiovascular Exam: Normal Skin: Negative: Rashes Respiratory Course/Dx - Course Course Of Treatment: Cough that persists after doxy rx. vitals good. lung exam unremarkable. declined xray. Likely viral bronchitis or RAD. Plan is to rx inhaler and steroid to help w/ symptoms. - Differential Dx/Diagnosis Differential Diagnosis/HQI/PQRI: Bronchitis, Lower Resp Infection, Other Provider Diagnosis: Reactive airway disease Discharge ED - Sign-Out/Discharge Documenting (check all that apply): Patient Departure All imaging exams completed and their final reports reviewed: No Studies - Discharge Plan Condition: Stable Disposition: HOME Prescriptions: Albuterol HFA INHALER* [Ventolin HFA Inhaler*] 1 - 2 puff INH Q6H PRN #1 mdi PRN Reason: Cough methylPREDNISolone [Medrol Dosepak 4 MG*] 0 mg PO .SEE ELISE INSTRUCTION #1 elise Patient Education Materials: Reactive Airways Disease (ED) Forms: *Work Release Referrals: Cierra Kelsey MD [Primary Care Provider] - Additional Instructions: if you develop shortness of breath please to to ER - Billing Disposition and Condition Condition: STABLE Disposition: Home
[2019-06-10 10:45] VITALS: BP 115/64
== END 2019-06-10 11:00 | disposition home or self-care (01) ==
LOC: UCEAST 10:21
DX: J45.909 Unspecified asthma, uncomplicated (principal); Z87.891 Personal history of nicotine dependence
CPT/HCPCS: 99212; G0463